=== PATIENT | male | born 1995 | race African-American/Black ===

== ENCOUNTER 2020-09-15 08:54 | Emergency (ER) | payer SELFPAY ==
[~2020-09-15] VITALS: Ht 180.3 cm; Wt 100.0 kg
[~2020-09-15 08:54] MED LIST: BACTRIM DS 8001 TAB PO; BENADRYL50 MG; CEPHALEXIN500 M1 PO; CIPRO 500MG TA500 MG PO; LORTAB 5/500 501 TAB PO; NAPROSYN 2250 MG/TAB PO; NAPROSYN500 MG PO; NO HOME MEDICATIONS
[2020-09-15 09:02] VITALS: TEMP 98.8
[2020-09-15] MEDS ORDERED: AMOXICILLIN 50500 MG PO (09:27)
[2020-09-15] MEDS ORDERED: PREDNISONE20 MG PO (09:27)
[2020-09-15 09:44] LABS: STREP SCREEN NEGATIVE
[2020-09-15 10:35] VITALS: BP 140/84; PULSE 93
== END 2020-09-15 10:35 | disposition home or self-care (01) ==
LOC: COL.ER 08:54
PROVIDERS: Family Medicine
DX: J03.90 Acute tonsillitis, unspecified (principal); F17.200 Nicotine dependence, unspecified, uncomplicated
CPT/HCPCS: J7512

== ENCOUNTER 2021-01-23 13:46 | Emergency (ER) | payer SELFPAY ==
[~2021-01-23] VITALS: Ht 180.3 cm; Wt 93.2 kg
[~2021-01-23 13:46] MED LIST changes: +AMOXICILLIN 50500 MG PO; +PREDNISONE20 MG PO
[2021-01-23 14:19] VITALS: TEMP 97.3
[2021-01-23] MEDS ORDERED: CLEOCIN HCL300 MG PO (15:12)
[2021-01-23] MEDS ORDERED: NORCO 325 MG-51 TAB PO (15:12)
[2021-01-23 15:18] VITALS: BP 157/84; PULSE 79
== END 2021-01-23 15:27 | disposition home or self-care (01) ==
LOC: COL.ER 13:46
DX: K04.7 Periapical abscess without sinus (principal); F17.210 Nicotine dependence, cigarettes, uncomplicated

== ENCOUNTER 2021-10-16 20:46 | Emergency (ER) | payer SELFPAY ==
[~2021-10-16] VITALS: Ht 180.3 cm; Wt 104.5 kg
[~2021-10-16 20:46] MED LIST changes: +CLEOCIN HCL300 MG PO; +NORCO 325 MG-51 TAB PO
[2021-10-16 21:02] VITALS: BP 138/90; TEMP 98.8
[2021-10-16 22:53] VITALS: PULSE 56
== END 2021-10-16 22:53 | disposition home or self-care (01) ==
LOC: COL.ER 20:46
DX: S93.601A Unspecified sprain of right foot, initial encounter (principal); F17.210 Nicotine dependence, cigarettes, uncomplicated; Z28.310 Unvaccinated for COVID-19; X58.XXXA Exposure to other specified factors, initial encounter; Y93.56 Activity, jumping rope